=== PATIENT | male | born 1980 | race Caucasian/White ===

== ENCOUNTER 2017-06-19 22:22 | Emergency (ER) | payer SELFPAY ==
--- NOTE | 2017-06-19 22:31 | EDM.PDOC ---
ED HPI GENERAL MEDICAL PROBLEM - General Chief Complaint: Gastrointestinal Problem Stated Complaint: NAUSEA Time Seen by Provider: 06/19/17 22:24 Source of Information: Reports: Patient History Limitations: Reports: No Limitations - History of Present Illness INITIAL COMMENTS - FREE TEXT/NARRATIVE: 36 YO WM presents to ER with 1 day of nausea/vomiting and diarrhea. Pt reports symptoms started this am. Pt states diarrhea resolved but he continues to feel nauseated and vomited 1 hour ago prompting ER evaluation. Pt reports 4 episodes of vomiting today and approximately 3 episodes of loose stool. Pt denies any abdominal pain, fever/chills, no bloody stools. Pt states he feels fine but left work tonight due to illness and needs a work note to return. Onset: Today Duration: Day(s): (1) Location: Reports: Generalized Severity: Mild Improves with: Reports: None Worsens with: Reports: None Associated Symptoms: Reports: Nausea/Vomiting. Denies: Fever/Chills, Malaise abdominal Pain Score (Numeric/FACES): 2 - Related Data Allergies Allergy/AdvReac Type Severity Reaction Status Date / Time No Known Drug Allergies Allergy Cannot Verified 06/19/17 22:36 Remember Home Meds: Home Meds . [No Known Home Meds] 06/19/17 [History] ED ROS GENERAL - Review of Systems Review Of Systems: See Below Constitutional: Reports: No Symptoms HEENT: Reports: No Symptoms Respiratory: Reports: No Symptoms Cardiovascular: Reports: No Symptoms Endocrine: Reports: No Symptoms GI/Abdominal: Reports: Diarrhea, Nausea, Vomiting. Denies: Abdominal Pain : Reports: No Symptoms Musculoskeletal: Reports: No Symptoms Skin: Reports: No Symptoms Neurological: Reports: No Symptoms Psychiatric: Reports: No Symptoms Hematologic/Lymphatic: Reports: No Symptoms Immunologic: Reports: No Symptoms ED EXAM, GI/ABD - Physical Exam Exam: See Below Exam Limited By: No Limitations General Appearance: Alert, WD/WN, No Apparent Distress Head: Atraumatic, Normocephalic Neck: Normal Inspection, Supple, Non-Tender, Full Range of Motion Respiratory/Chest: No Respiratory Distress, Lungs Clear, Normal Breath Sounds, No Accessory Muscle Use, Chest Non-Tender Cardiovascular: Normal Peripheral Pulses, Regular Rate, Rhythm, No Edema, No Gallop, No JVD, No Murmur, No Rub GI/Abdominal Exam: Normal Bowel Sounds, Soft, Non-Tender, No Organomegaly, No Distention, No Abnormal Bruit, No Mass, Pelvis Stable Back Exam: Normal Inspection, Full Range of Motion, NT Extremities: Normal Inspection, Normal Range of Motion, Non-Tender, Normal Capillary Refill, No Pedal Edema Neurological: Alert, Oriented, CN II-XII Intact, Normal Cognition, Normal Gait, Normal Reflexes, No Motor/Sensory Deficits Psychiatric: Normal Affect, Normal Mood Skin Exam: Warm, Dry, Intact, Normal Color, No Rash Lymphatic: No Adenopathy Course - Vital Signs Last Recorded V/S: Last Vital Signs Temp 36.8 C 06/19/17 22:32 Pulse 111 H 06/19/17 22:32 Resp 22 H 06/19/17 22:32 BP 151/80 H 06/19/17 22:32 Pulse Ox 97 06/19/17 22:32 Departure - Departure Time of Disposition: 23:19 Disposition: Home, Self-Care 01 Condition: Good Clinical Impression: Gastroenteritis - Discharge Information Instructions: Viral Gastroenteritis, Adult, [id number], Dehydration, Adult, Tinw-or-Dwmg Forms: ED Department Discharge, ED Return to Work/School Form - Assessment/Plan Assessment:: 1. viral gastroenteritis Plan: 1. discharge home 2. zofran 4mg ODT #5 Q6 3. clear liquid diet and progress as tolerated 4. follow up with PCP for further evaluation and treatment 5. return to ER for worsening symptoms
[2017-06-19] MEDS ORDERED: Metoclopramide 10 MG/2 ML SDV IM ONE (23:13)
[2017-06-19] MEDS ORDERED: Ondansetron 4 MG Tab.DIS PO PRN (23:13)
== END 2017-06-19 23:35 | disposition home or self-care (01) ==
LOC: KA.ED 22:22
DX: A08.4 Viral intestinal infection, unspecified (principal)
CPT/HCPCS: 96372; 99283; A9270-GY; J2765

== ENCOUNTER 2017-09-06 12:25 | Observation (INO) | payer OTHER ==
[2017-09-06] MEDS: Levofloxacin/Dextrose 5%-Water 500 MG in Premix Bag 1 BAG IV SCH (14:24)
[2017-09-06] MEDS: Dextrose 5%-0.45% NaCl 1,000 ML IV SCH (14:25)
[2017-09-06] MEDS: Albuterol/Ipratropium 3.0-0.5 MG/3 ML Neb Soln NEB SCH ×2 (17:41→23:23)
[2017-09-07] MEDS: Dextrose 5%-0.45% NaCl 1,000 ML IV SCH ×3 (00:24→21:21)
[2017-09-07] MEDS: Albuterol/Ipratropium 3.0-0.5 MG/3 ML Neb Soln NEB SCH ×2 (05:59→11:35)
[2017-09-07] MEDS ORDERED: Acetaminophen 325 MG Tab PO PRN (09:42)
[2017-09-07] MEDS ORDERED: Acetaminophen 325 MG Tab ONE (09:45)
--- NOTE | 2017-09-07 10:51 | PCM.PN ---
- General Info Date of Service: 09/07/17 Functional Status: Reports: Pain Controlled, Tolerating Diet, Urinating, New Symptoms (Joint aches-- knees, hands, elbows). Denies: Ambulating - Review of Systems General: Reports: Weakness, Fatigue, Malaise, Night Sweats, Appetite. Denies: Fever, Chills HEENT: Reports: No Symptoms Pulmonary: Reports: Cough (Dry cough in the a.m. only, past 6 days). Denies: Shortness of Breath, Pleuritic Chest Pain, Sputum, Hemoptysis, Wheezing Cardiovascular: Reports: No Symptoms Gastrointestinal: Denies: Abdominal Pain, Constipation, Decreased Appetite, Diarrhea, Difficulty Swallowing, Melena, Nausea, Vomiting Genitourinary: Reports: No Symptoms Musculoskeletal: Reports: Other (Admits to generalized joint aches elbow was knees and hands). Denies: Joint Swelling Skin: Denies: Jaundice, Pallor, Diaphoresis, Bruising, Pruritis, Rash Neurological: Reports: Paresthesia, Tremors, Weakness, Change in Speech. Denies : Confusion Psychiatric: Reports: No Symptoms. Denies: Cravings - Patient Data Vitals - Most Recent: Last Vital Signs Temp 98.4 F 09/07/17 06:43 Pulse 52 L 09/07/17 06:43 Resp 16 09/07/17 06:43 BP 98/57 L 09/07/17 06:43 Pulse Ox 97 09/07/17 06:43 Weight - Most Recent: 144 lb 6 oz I&O - Last 24 Hours: Intake & Output 09/06/17 09/07/17 09/07/17 22:59 06:59 14:59 Intake Total 1938 840 Output Total 275 Balance 1663 840 Lab Results Last 24 Hours: Laboratory Results - last 24 hr 09/06/17 09/07/17 Range/Units 18:00 07:28 WBC 6.6 (5.0-10.0) 10^3/uL RBC 4.15 L (4.50-6.00) 10^6/uL Hgb 13.1 (13.0-17.0) g/dL Hct 38.9 L (40.0-52.0) % MCV 93.8 H (82.0-92.0) fL MCH 31.5 H (27.0-31.0) pg MCHC 33.6 (32.0-36.0) g/dL RDW 12.4 (11.5-14.5) % Plt Count 173 (150-300) 10^3/uL MPV 7.6 (7.4-10.4) fL Neut % (Auto) 37.7 L (50.0-70.0) % Lymph % (Auto) 46.2 H (20.0-40.0) % [place] % (Auto) 11.2 H (2.0-8.0) % Eos % (Auto) 3.9 H (1.0-3.0) % Baso % (Auto) 1.0 (0.0-1.0) % Neut # (Auto) 2.5 (2.5-7.0) 10^3/uL Lymph # (Auto) 3.0 (1.0-4.0) 10^3/uL [place] # (Auto) 0.7 (0.1-0.8) 10^3/uL Eos # (Auto) 0.3 (0.1-0.3) 10^3/uL Baso # (Auto) 0.1 (0.0-0.1) 10^3/uL Specimen Type Urinvoid Urine Color Yellow (YELLOW) Urine Appearance Cloudy H (CLEAR) Urine pH 7.5 (5.0-9.0) Ur Specific [place] 1.015 (1.005-1.030) Urine Protein Negative (NEGATIVE) mg/dL Urine Glucose (UA) Negative (NEGATIVE) mg/dL Urine Ketones Negative (NEGATIVE) mg/dL Urine Occult Blood Negative (NEGATIVE) Urine Nitrite Negative (NEGATIVE) Urine Bilirubin Negative (NEGATIVE) Urine Urobilinogen 0.2 (0.2-1.0) E.U./dL Ur Leukocyte Esterase Negative (NEGATIVE) Urine RBC 0-5 /HPF Urine WBC 0-5 /HPF Ur Epithelial Cells Rare /LPF Amorphous Sediment Moderate H (0/HPF) /HPF Urine Bacteria Few (NONE TO FEW) /HPF Med Orders - Current: Current Medications Acetaminophen (Tylenol) 650 mg PO Q4H PRN PRN Reason: Pain Last Admin: 09/07/17 09:48 Dose: 650 mg Albuterol/Ipratropium (Duoneb 3.0-0.5 Mg/3 Ml) 3 ml NEB Q6HRRT [facility] Last Admin: 09/07/17 05:59 Dose: 3 ml Dextrose/Sodium Chloride (Dextrose 5%-1/2 Ns) 1,000 mls @ 100 mls/hr IV ASDIRECTED [facility] Last Admin: 09/07/17 00:24 Dose: 100 mls/hr Levofloxacin/Dextrose 500 mg/ (Premix) 100 mls @ 100 mls/hr IV Q24H [facility] Last Admin: 09/06/17 14:24 Dose: 100 mls/hr Discontinued Medications Acetaminophen (Tylenol) Confirm Administered Dose 650 mg .[facility]TE [facility] Stop: 09/07/17 09:46 - Exam Quality Assessment: No: Supplemental Oxygen General: Alert, Oriented, Cooperative, No Acute Distress HEENT: Mucous Membr. Moist/[place], Other (Tiny pupils) Neck: Supple, No JVD, No Thyromegaly. No: Lymphadenopathy Lungs: Clear to Auscultation, Normal Respiratory Effort. No: Decreased Breath Sounds Cardiovascular: Regular Rate, Regular Rhythm, No Murmurs GI/Abdominal Exam: Normal Bowel Sounds, Soft, Non-Tender, No Distention, No Mass , Guarding, Rigid, Rebound, Tender. No: Distended, Hernia, Hepatomegaly, Splenomegaly (Male) Exam: No Hernia. No: Inguinal Lymphadenopathy, Rash Back Exam: Normal Inspection. No: CVA Tenderness (L), CVA Tenderness (R) Extremities: No Pedal Edema Peripheral Pulses: 2+: Radial (L), Radial (R) Skin: Other (Bruise left temporal prior to admission, hit head on table) Psy/Mental Status: Alert, Normal Affect, Normal Mood - Problem List Review Problem List Initiated/Reviewed/Updated: Yes - My Orders Last 24 Hours: My Active Orders 09/07/17 09:42 Acetaminophen [Tylenol] 650 mg PO Q4H PRN - Plan Plan:: Brief history: See admitting providersl H&P however this 37-year-old gentleman admits to a normal state of health just a few days ago was admitted yesterday by Petros Whitten PA-C from [facility] leukocytosis, fatigue initially thought to be possible pneumonia however chest x-ray wet read was clear. Patient came in with extreme fatigue, sleeps a lot, and just lack of energy-- however no fevers or chills. Patient did have cough past 6 days however dried no mucus production. He does smoke however he is quite active runs approximately 5 miles per day. He works at a [employer] up to 90 hours per week. He denies illicit drug use or any other ill contacts, no abd pain or jaundice, no new tattoos. Patient does admit to multiple tick bites recently however no rash or fever. Pertinent workup prior to admission Neutrophilia, 70% white count 20,000, ANC 16.2 Monocytes 1.5 Chest x-ray appeared clear ESR 1 Pox 95% Update today, patient's slept hard all night according to nurses, afebrile, white count 6.6, no neutrophilia, vital signs stable and good, overall does feel better. Impression Lymphocytosis, suspect viral and/or parasitic etiology as evidence of eosinophilia, however patient does have favorable monocytosis especially in light of normal white count today with no neutrophilia-essentially ruling out any degenerative left shift. BC surveillance, chest x-ray wet read clear however official report pending--likely not pulmonary etiology. Plan today, continue IV fluids, although suspect viral etiology we'll continue with Levaquin at this time, subclinical symptoms at this time, elucive diagnosis at this time, viral serology cultures, assess for lyme/West Nile today , forego peripheral smear for Babesiosis since patient is never been febrile.
[2017-09-07] MEDS ORDERED: Albuterol/Ipratropium 3.0-0.5 MG/3 ML Neb Soln NEB PRN (12:00)
[2017-09-07] MEDS: Levofloxacin/Dextrose 5%-Water 500 MG in Premix Bag 1 BAG IV SCH (12:07)
[2017-09-07] MEDS: Nicotine 14 MG/24 Hr Patch TRDERM SCH (12:19)
[2017-09-08] MEDS: Dextrose 5%-0.45% NaCl 1,000 ML IV SCH (06:11)
[2017-09-08] MEDS: Nicotine 14 MG/24 Hr Patch TRDERM SCH (08:36)
== END 2017-09-08 13:00 | disposition home or self-care (01) ==
LOC: KA.MS 12:41
PROVIDERS: ADMIT Physician Assistant; ATTEND Family Medicine
DX: D72.820 Lymphocytosis (symptomatic) (principal); F17.210 Nicotine dependence, cigarettes, uncomplicated; Z88.5 Allergy status to narcotic agent
CPT/HCPCS: 36415; 81001; 85008; 85025; 86308; 86617; 86663; 86664; 86665; 86703; 86788; 87040; 87252; 94640; 96361; 96365; 96366; A9270-GY; G0378; G0379; J1956; J7042